=== PATIENT | male | born 1960 | race Caucasian/White ===

== ENCOUNTER 2021-12-01 10:02 | Outpatient (CLI) | payer OTHER, SELFPAY ==
[2021-12-01 10:31] LABS: Hemoglobin A1C 5.1 % (<5.7)
[2021-12-01 10:40] LABS: Alanine Aminotransferase 25 U/L (6-50); Albumin Level 4.5 g/dL (3.5-5.1); Alkaline Phosphatase 60 U/L (38-126); Anion Gap 9 mmol/L (8-16); Aspartate Amino Transferase 30 U/L (17-59); Bilirubin,Total 0.5 mg/dL (0.2-1.3); Blood Urea Nitrogen 18 mg/dL (9-20); Carbon Dioxide 30 mmol/L (22-30); Chloride 101 mmol/L (98-107); Estimated Glomerular Filt Rate > 60; Glucose 57 mg/dL (65-110); Potassium 3.7 mmol/L (3.4-5.0); Sodium 140 mmol/L (137-145)
== END 2021-12-01 10:03 | disposition home or self-care (01) ==
PROVIDERS: PCP Physician Assistant; Visit Provider Physician Assistant
DX: E11.9 Type 2 diabetes mellitus without complications (principal)
CPT/HCPCS: 36415; 80053; 83036

== ENCOUNTER 2022-06-11 11:29 | Outpatient (CLI) | payer OTHER, SELFPAY ==
[2022-06-11 11:50] LABS: Basophils Percent Auto 0.5 % (0.2-1.2); Eosinophils Absolute Auto 0.2 K/mm3 (0-0.3); Eosinophils Percent Auto 2.6 % (0-4.4); Hematocrit 43.2 % (42.0-52.0); Hemoglobin 14.7 g/dL (14.0-18.0); Immature Granulocyte Absolute 0.02 K/mm3 (0.00-0.031); Immature Granulocyte Percent A 0.3 % (0-0.5); Lymphocytes Absolute Auto 1.31 K/mm3 (0.9-3.2); Lymphocytes Percent Auto 21.4 % (18.3-44.2); Mean Corpuscular Hemoglobin 31.1 pg (26-34); Mean Corpuscular Volume 91.5 fl (80-100); Mean Platelet Volume 9.1 fl (7.4-10.4); Monocytes Absolute Auto 0.5 K/mm3 (0.1-0.6); Monocytes Percent Auto 7.5 % (2.6-8.5); Neutrophils Absolute Auto 4.2 K/mm3 (1.3-6.7); Neutrophils Percent Auto 67.7 % (45.5-73.1); Platelet Count Result 288 k/mm3 (150-375); Red Blood Count 4.72 M/mm3 (4.6-6.20); Red Cell Distribution Width 12.6 % (11.5-14.5); White Blood Count 6.1 K/mm3 (4.5-10.0)
[2022-06-11 12:25] LABS: Creatinine Urine 50.5 mg/dL
[2022-06-11 12:29] LABS: MALB Creatinine Ratio 64.4 mg/g (0-30); Microalbumin Urine Random 32.5 mg/L (0-16.7)
[2022-06-11 12:32] LABS: Hemoglobin A1C 6.1 % (<5.7)
[2022-06-11 12:50] LABS: Alanine Aminotransferase 32 U/L (6-50); Albumin Level 4.4 g/dL (3.5-5.1); Alkaline Phosphatase 77 U/L (38-126); Anion Gap 7 mmol/L (8-16); Aspartate Amino Transferase 33 U/L (17-59); Bilirubin,Total 0.7 mg/dL (0.2-1.3); Blood Urea Nitrogen 17 mg/dL (9-20); Calcium 9.1 mg/dL (8.4-10.2); Carbon Dioxide 31 mmol/L (22-30); Chloride 101 mmol/L (98-107); Cholesterol 197 mg/dL (0-200); Estimated Glomerular Filt Rate > 60; Glucose 150 mg/dL (65-110); HDL Direct 35 mg/dL; Potassium 3.9 mmol/L (3.4-5.0); Sodium 139 mmol/L (137-145); Triglycerides 99 mg/dL (<150)
[2022-06-11 13:00] LABS: LDL Cholesterol Direct 132 mg/dL
[2022-06-11 13:20] LABS: Prostate Specific Antigen 1.7 ng/mL (< OR = 4.0)
== END 2022-06-11 11:30 | disposition home or self-care (01) ==
PROVIDERS: PCP Physician Assistant; Visit Provider Physician Assistant
DX: Z00.00 Encounter for general adult medical examination without abnormal findings (principal); E11.9 Type 2 diabetes mellitus without complications; Z12.5 Encounter for screening for malignant neoplasm of prostate
CPT/HCPCS: 36415; 80053; 80061; 82043; 82607; 82746; 83036; 84153; 84443; 85025; G0103

== ENCOUNTER 2022-12-07 12:00 | Outpatient (CLI) | payer OTHER, SELFPAY ==
[2022-12-07 13:40] LABS: Alanine Aminotransferase 41 U/L (6-50); Albumin Level 4.2 g/dL (3.5-5.1); Alkaline Phosphatase 75 U/L (38-126); Anion Gap 10 mmol/L (8-16); Aspartate Amino Transferase 45 U/L (17-59); Bilirubin,Total 0.7 mg/dL (0.2-1.3); Blood Urea Nitrogen 14 mg/dL (9-20); Calcium 8.9 mg/dL (8.4-10.2); Carbon Dioxide 28 mmol/L (22-30); Chloride 98 mmol/L (98-107); Estimated Glomerular Filt Rate > 60; Glucose 127 mg/dL (65-110); Magnesium 1.8 mg/dL (1.6-2.3); Potassium 3.8 mmol/L (3.4-5.0); Sodium 136 mmol/L (137-145)
[2022-12-07 13:43] LABS: Hemoglobin A1C 6.3 % (<5.7)
== END 2022-12-07 12:01 | disposition home or self-care (01) ==
PROVIDERS: PCP Physician Assistant; Visit Provider Physician Assistant
DX: I10 Essential (primary) hypertension (principal); E11.9 Type 2 diabetes mellitus without complications
CPT/HCPCS: 36415; 80053; 83036; 83735

== ENCOUNTER 2023-02-08 00:40 | Day surgery (SDC) | payer OTHER, SELFPAY ==
[2023-01-31 09:59] VITALS: BMI 25.4
[2023-02-08 07:43] VITALS: BP 192/69; PULSE 61; RESP 18; TEMP 36.4; O2SAT 100
[2023-02-08] MEDS: LACTATED RINGERS 1,000 ML 150 ML IV CONT (07:50)
[2023-02-08 08:17] LABS: Glucose Point of Care 121 mg/dl (65-105)
--- NOTE | 2023-02-08 08:20 | P.PNAN_ITS ---
Anes - Initial Pre Proc Eval Procedure: Operation Date: 02/08/23 08:45 Proposed Procedures p Colonoscopy - Marcel Valentine MD Date/Time: 02/08/23 08:20 Surgeon: Marcel Valentine MD Pre Op Diagnosis: Family history of colon cancer Patient Data Age: 62 Gender: M Height: 1.83 m Weight: 85.9 kg Last Vital Signs Temp 97.5 F L 02/08/23 07:43 Pulse 61 02/08/23 07:43 Resp 18 02/08/23 07:43 BP 192/69 H 02/08/23 07:43 Pulse Ox 100 02/08/23 07:43 O2 Del Method Room Air 02/08/23 07:43 Allergies Allergy/AdvReac Type Severity Reaction Status Date / Time No Known Allergies Allergy Verified 02/08/23 07:42 Home Medications Medication Instructions Recorded Confirmed Type hydralazine 50 mg tablet 50 mg PO TID #90 tabs 11/19/22 01/31/23 Rx metoprolol tartrate 25 mg tablet See Rx Instructions .Route 11/26/22 01/31/23 Rx .COMPLEX #270 tabs losartan 100 mg tablet 100 mg PO DAILY #90 tabs 12/01/22 01/31/23 Rx metformin 1,000 mg tablet 1,000 mg PO BID #180 tabs 12/07/22 01/31/23 Rx hydrochlorothiazide 50 mg tablet 50 mg PO DAILY #90 tabs 01/26/23 01/31/23 Rx Laboratory Tests 02/08/23 07:51 POC Capillary Glucose 121 H mg/dl (65-105) Patient hx anesthesia problems: none Family hx anesthesia problems: none Results Review: All pre-operative results and documents have been reviewed as part of the pre- operative evaluation. [facility] Past Medical History Medical History (Updated 12/09/22 @ 13:47 by Emir Wolff PA-C) Diabetes Hypertension Family History Family History Mother Diabetes mellitus Hypertension Cerebrovascular accident Sibling Diabetes mellitus Grandparent Diabetes mellitus Heart disease Hypertension Social History Social History Smoking status: Never smoker Second hand tobacco smoke exposure: No Alcohol intake: never Substance use: unknown Current Housing: Decline to Answer Concerned About Future Housing: Decline to Answer Difficulty Paying Gas/Electric Bills: Decline to Answer Difficulty Paying for Meds: Decline to Answer Currently Unemployed: Decline to Answer Education: Decline to Answer Difficulty w/ Childcare or Family Care: Decline to Answer Living arrangements: with family Spiritual care concerns: No Anes - Eval Final PreProcedure Day of Procedure 02/08/23 08:20 Patient weight: normal Heart: regular rate and rhythm Lungs: clear to auscultation Airway: Mallampati scale class II Neurological: alert and oriented Last oral intake: >/= 8 hours ASA classification: II Emergent: no Anesthetic plan: proceed Anesthesia type and monitoring: general GIVS and standard monitoring Results Review: All pre-operative results and documents have been reviewed as part of the pre- operative evaluation. Informed Consent: The patient's anesthetic plan and its attendant risks and benefits were discussed with the patient/family/POA. Questions were solicited and answers provided to the satisfaction of the patient/family/POA.
--- NOTE | 2023-02-08 08:28 | PM.HPGS ---
History of Present Illness History of Present Illness Consent: Risks, benefits, and alternatives have been discussed and questions answered. Patient agrees to proceed with procedure. Chief complaint: Family history of colon cancer Narrative: Vinny Acuña is a 62 year old male here for first screening colonoscopy Review of Systems Constitutional: Constitutional: Denies headache(s) and Denies weakness Eyes: Eyes: Denies blurry vision ENT: Reports Normal hearing present, Denies headache(s) and Denies neck pain Cardiovascular: Cardiovascular: Denies chest pain and Denies dyspnea Respiratory: Respiratory: Denies dyspnea Gastrointestinal: Gastrointestinal: Reports no additional gastrointestinal complaints Genitourinary: Genitourinary: Denies dysuria Musculoskeletal: Musculoskeletal: Denies neck pain Integumentary/Breasts: Skin/Breast: Denies dry skin Neurologic: Reports Normal hearing present, Denies headache(s) and Denies weakness Psychiatric: Psychiatric: Denies anxiety Endocrine: Endocrine: Denies change in body appearance Hematologic/Lymphatic: Hematologic/Lymphatic: Denies easy bleeding Allergic/Immunologic: Allergic/Immunologic: Denies urticaria PMFSH Past Medical History Medical History (Updated 02/08/23 @ 08:29 by Marcel Valentine MD) Colon cancer screening Diabetes Hypertension Family History Family History Mother Diabetes mellitus Hypertension Cerebrovascular accident Sibling Diabetes mellitus Grandparent Diabetes mellitus Heart disease Hypertension Social History Social History Smoking status: Never smoker Second hand tobacco smoke exposure: No Alcohol intake: never Substance use: unknown Current Housing: Decline to Answer Concerned About Future Housing: Decline to Answer Difficulty Paying Gas/Electric Bills: Decline to Answer Difficulty Paying for Meds: Decline to Answer Currently Unemployed: Decline to Answer Education: Decline to Answer Difficulty w/ Childcare or Family Care: Decline to Answer Living arrangements: with family Spiritual care concerns: No Meds Home Medications and Allergies Home Medications Medication Instructions Recorded Confirmed Type hydralazine 50 mg tablet 50 mg PO TID #90 tabs 11/19/22 01/31/23 Rx metoprolol tartrate 25 mg tablet See Rx Instructions .Route 11/26/22 01/31/23 Rx .COMPLEX #270 tabs losartan 100 mg tablet 100 mg PO DAILY #90 tabs 12/01/22 01/31/23 Rx metformin 1,000 mg tablet 1,000 mg PO BID #180 tabs 12/07/22 01/31/23 Rx hydrochlorothiazide 50 mg tablet 50 mg PO DAILY #90 tabs 01/26/23 01/31/23 Rx Allergies Allergy/AdvReac Type Severity Reaction Status Date / Time No Known Allergies Allergy Verified 02/08/23 07:42 Vital Signs Vital Signs - 24 hr 02/08/23 07:43 Temperature 97.5 F L Pulse Rate 61 Respiratory Rate 18 Blood Pressure 192/69 H Pulse Oximetry 100 Oxygen Delivery Room Air Exam Const: General: comfortable and no acute distress HENMT: Face/Nose/Sinus: Normal nares present Eyes: General: appearance normal, both eyes and all related structures Neck: Neck: no JVD Resp: Auscultation: clear to auscultation bilaterally Cardio: Rate: regular rate Rhythm: regular rhythm GI: Inspection: non-distended GI Palp: Yes Soft to palpation Skin: General skin exam: normal color Neuro: General: gait normal Speech: normal speech Extrem: General: normal to inspection Psych: Mental Status: mental status grossly normal Assessment and Plan Assessment and plan (1) Colon cancer screening: Code(s): Z12.11 - Encounter for screening for malignant neoplasm of colon Status: Acute Assessment and Plan: colonoscopy
[2023-02-08 08:53] VITALS: BP 134/66; PULSE 60; RESP 16; O2SAT 100
[2023-02-08 09:03] VITALS: BP 139/69; PULSE 55; RESP 16; O2SAT 100
[2023-02-08 09:13] VITALS: BP 165/79; PULSE 54; RESP 20; O2SAT 100
== END 2023-02-08 09:27 | disposition home or self-care (01) ==
PROVIDERS: PCP Physician Assistant; Visit Provider Internal Medicine Gastroenterology
PROC: 0DJD8ZZ Inspection of Lower Intestinal Tract, Via Natural or Artificial Opening Endoscopic (ICD-10-PCS; CPT 45378; principal; 2023-02-08 08:45)
DX: Z12.11 Encounter for screening for malignant neoplasm of colon (principal); D12.8 Benign neoplasm of rectum; E11.9 Type 2 diabetes mellitus without complications; I10 Essential (primary) hypertension; Z79.84 Long term (current) use of oral hypoglycemic drugs; Z86.73 Personal history of transient ischemic attack (TIA), and cerebral infarction without residual deficits; Z80.0 Family history of malignant neoplasm of digestive organs
CPT/HCPCS: 45385; 82948; 88305; J2704; J7120

== ENCOUNTER 2023-06-14 11:26 | Outpatient (CLI) | payer OTHER, SELFPAY ==
[2023-06-14 12:06] LABS: Basophils Percent Auto 0.5 % (0.2-1.2); Eosinophils Absolute Auto 0.2 K/mm3 (0-0.3); Eosinophils Percent Auto 3.2 % (0-4.4); Hematocrit 45.6 % (42.0-52.0); Hemoglobin 14.8 g/dL (14.0-18.0); Immature Granulocyte Absolute 0.02 K/mm3 (0.00-0.031); Immature Granulocyte Percent A 0.3 % (0-0.5); Lymphocytes Absolute Auto 1.24 K/mm3 (0.9-3.2); Lymphocytes Percent Auto 20.7 % (18.3-44.2); Mean Corpuscular HGB Conc 32.5 g/dl (32-36); Mean Corpuscular Hemoglobin 29.8 pg (26-34); Mean Corpuscular Volume 91.9 fl (80-100); Mean Platelet Volume 9.4 fl (7.4-10.4); Monocytes Absolute Auto 0.5 K/mm3 (0.1-0.6); Neutrophils Percent Auto 67.3 % (45.5-73.1); Platelet Count Result 290 k/mm3 (150-375); Red Blood Count 4.96 M/mm3 (4.6-6.20); Red Cell Distribution Width 12.6 % (11.5-14.5)
[2023-06-14 12:19] LABS: Alanine Aminotransferase 24 U/L (6-50); Albumin Level 4.4 g/dL (3.5-5.1); Alkaline Phosphatase 72 U/L (38-126); Anion Gap 8 mmol/L (8-16); Aspartate Amino Transferase 31 U/L (17-59); Bilirubin,Total 0.8 mg/dL (0.2-1.3); Blood Urea Nitrogen 14 mg/dL (9-20); Calcium 9.4 mg/dL (8.4-10.2); Carbon Dioxide 27 mmol/L (22-30); Chloride 103 mmol/L (98-107); Cholesterol 162 mg/dL (0-200); Estimated Glomerular Filt Rate > 60; Glucose 133 mg/dL (65-110); HDL Direct 42 mg/dL; Potassium 3.8 mmol/L (3.4-5.0); Sodium 138 mmol/L (137-145); Triglycerides 57 mg/dL (<150)
[2023-06-14 12:27] LABS: Hemoglobin A1C 6.4 % (<5.7)
[2023-06-14 12:31] LABS: LDL Cholesterol Direct 115 mg/dL
[2023-06-14 12:45] LABS: Creatinine Urine 46.9 mg/dL
[2023-06-14 12:49] LABS: MALB Creatinine Ratio 70.6 mg/g (0-30); Microalbumin Urine Random 33.1 mg/L (0-16.7)
[2023-06-14 12:52] LABS: Prostate Specific Antigen 2.3 ng/mL (< OR = 4.0)
[2023-06-14 13:27] LABS: Folic Acid 8.1 ng/mL (2.76->20)
== END 2023-06-14 11:27 | disposition home or self-care (01) ==
LOC: ANHLAB 11:28
PROVIDERS: PCP Physician Assistant; Visit Provider Physician Assistant
DX: Z00.00 Encounter for general adult medical examination without abnormal findings (principal); E11.9 Type 2 diabetes mellitus without complications; Z12.5 Encounter for screening for malignant neoplasm of prostate
CPT/HCPCS: 36415; 80053; 80061; 82043; 82607; 82746; 83036; 84153; 84443; 85025; G0103

== ENCOUNTER 2023-12-27 13:49 | Outpatient (CLI) | payer OTHER, SELFPAY ==
[2023-12-27 14:41] LABS: Alanine Aminotransferase 38 U/L (6-50); Albumin Level 4.4 g/dL (3.5-5.1); Alkaline Phosphatase 71 U/L (38-126); Anion Gap 11 mmol/L (4-12); Aspartate Amino Transferase 36 U/L (17-59); Bilirubin,Total 0.9 mg/dL (0.2-1.3); Blood Urea Nitrogen 15 mg/dL (9-20); Calcium 9.3 mg/dL (8.4-10.2); Carbon Dioxide 26 mmol/L (22-30); Chloride 100 mmol/L (98-107); Cholesterol 183 mg/dL (0-200); Estimated Glomerular Filt Rate > 60; Glucose 123 mg/dL (65-110); HDL Direct 38 mg/dL; Potassium 3.9 mmol/L (3.4-5.0); Sodium 137 mmol/L (137-145); Triglycerides 101 mg/dL (<150)
[2023-12-27 14:52] LABS: LDL Cholesterol Direct 129 mg/dL
[2023-12-27 15:04] LABS: Hemoglobin A1C 6.7 % (<5.7)
== END 2023-12-27 13:50 | disposition home or self-care (01) ==
LOC: ANHLAB 13:51
PROVIDERS: PCP Internal Medicine; Visit Provider Internal Medicine
DX: E78.5 Hyperlipidemia, unspecified (principal); I10 Essential (primary) hypertension; E11.9 Type 2 diabetes mellitus without complications
CPT/HCPCS: 36415; 80053; 80061; 83036

== ENCOUNTER 2024-06-15 11:48 | Outpatient (CLI) | payer OTHER, SELFPAY ==
[2024-06-15 12:17] LABS: Basophils Percent Auto 0.6 % (0.2-1.2); Eosinophils Absolute Auto 0.2 K/mm3 (0-0.3); Eosinophils Percent Auto 2.6 % (0-4.4); Hematocrit 38.4 % (42.0-52.0); Hemoglobin 12.9 g/dL (14.0-18.0); Immature Granulocyte Absolute 0.02 K/mm3 (0.00-0.031); Immature Granulocyte Percent A 0.3 % (0-0.5); Lymphocytes Percent Auto 20.2 % (18.3-44.2); Mean Corpuscular HGB Conc 33.6 g/dl (32-36); Mean Corpuscular Hemoglobin 30.7 pg (26-34); Mean Corpuscular Volume 91.4 fl (80-100); Mean Platelet Volume 9.3 fl (7.4-10.4); Monocytes Absolute Auto 0.7 K/mm3 (0.1-0.6); Monocytes Percent Auto 10.1 % (2.6-8.5); Neutrophils Absolute Auto 4.3 K/mm3 (1.3-6.7); Neutrophils Percent Auto 66.2 % (45.5-73.1); Platelet Count Result 290 k/mm3 (150-375); Red Cell Distribution Width 12.6 % (11.5-14.5); White Blood Count 6.4 K/mm3 (4.5-10.0)
[2024-06-15 12:28] LABS: Alanine Aminotransferase 32 U/L (6-50); Albumin Level 4.2 g/dL (3.5-5.1); Alkaline Phosphatase 64 U/L (38-126); Anion Gap 8 mmol/L (4-12); Aspartate Amino Transferase 28 U/L (17-59); Bilirubin,Total 0.6 mg/dL (0.2-1.3); Blood Urea Nitrogen 15 mg/dL (9-20); Calcium 9.4 mg/dL (8.4-10.2); Carbon Dioxide 27 mmol/L (22-30); Chloride 101 mmol/L (98-107); Cholesterol 172 mg/dL (0-200); Estimated Glomerular Filt Rate > 60; Glucose 136 mg/dL (65-110); HDL Direct 38 mg/dL; Potassium 4.3 mmol/L (3.4-5.0); Sodium 136 mmol/L (137-145); Triglycerides 91 mg/dL (<150)
[2024-06-15 12:31] LABS: Hemoglobin A1C 6.6 % (<5.7)
[2024-06-15 12:33] LABS: Creatinine Urine 31.9 mg/dL
[2024-06-15 12:35] LABS: MALB Creatinine Ratio 71.5 mg/g (0-30); Microalbumin Urine Random 22.8 mg/L (0-16.7)
--- OUTSIDE RECORDS SUMMARY | 2024-06-15 12:36 | XMS_ITS | Continuity of Care Document ---
Author Organization [facility] Address [address] [place] [address] Phone Care Team Providers Care Senior Hydrogeologist Name Role Phone Cesar Keane MD Unavailable Unavailable Allergies, Adverse Reactions, Alerts Substance Reaction Status Criticality No Known Allergies Active No Inform ation Medications Medication Instructions Dosage Effective Dates (start - stop) Status Comments hydroCHLOROthiazide 50 MG Oral Tablet Take 1 tablet by mouth once daily - Active glipiZIDE 5 MG Oral Tablet TAKE 1 TABLET BY MOUTH ONCE DAILY BEFORE MEAL(S) 5 MG - Active Metoprolol Tartrate 25 MG Oral Tablet TAKE 2 TABLETS BY MOUTH ONCE DAILY IN THE MORNING AND 1 ONCE DAILY IN THE EVENING - Active metFORMIN HCl ER 500 MG Oral Tablet Extended Release 24 Hour TAKE 2 TABLETS BY MOUTH TWICE DAILY BEFORE BREAKFAST AND EVENING MEAL - Active hydralazine 50 mg tablet take 1 tablet b y oral route 3 times every day with food 50 MG - Active losartan 25 mg tablet take 2 tablet by oral route every day 50 MG - Active Lipitor 40 mg tablet take 1 Tablet by oral route every day at bedtime 40 MG - Active metformin ER 500 mg tablet,extended release 24hr take 2 tablets twice daily before breakfast and evening meal - Active Procedures Procedure Date Pt inelig neg scrn depres PREVENTATIVE-EST: 40-64 BODY MASS INDEX DOCD SYST BP >= 140 MM HG6 IT DIAST BP 80-89 MM HG CBC, INC PLATELETS AND DIFFERENTIAL COMPREHEN METABOLIC PANEL CMP 2 HEMOGLOBIN A1C HGA1C, GLYCO LIPID PANEL MICROALBUMIN, QN (URINE) CREATININE, (U-R) ROUTINE VENIPUNCTURE COMPREHEN METABOLIC PANEL [facility] 1 ROUTINE VENIPUNCTURE BP OFFICE/OUTPATIENT VISIT EST 21 Pt inelig neg scrn depres OFFICE [id number] BODY MASS INDEX DOCD SYST BP >= 140 MM HG6 IT DIAST BP 80-89 MM HG CBC, INC PLATELETS AND DIFFERENTIAL COMPREHEN METABOLIC PANEL [facility] HEMOGLOBIN A1C HGA1C, GLYCO LIPID PANEL MICROALBUMIN, QN (URINE) CREATININE, (U-R) PSA, TOTAL ROUTINE VENIPUNCTURE Pt inelig neg scrn depres OFFICE [id number] BODY MASS INDEX DOCD SYST BP >= 140 MM HG6 IT DIAST BP < 80 MM HG BASIC METABOLIC PANEL(BMP) HEMOGLOBIN A1C HGA1C, GLYCO ROUTINE VENIPUNCTURE Pt inelig neg scrn depres PREVENTATIVE-EST: 40-64 BODY MASS INDEX DOCD SYST BP >= 140 MM HG6 IT DIAST BP < 80 MM HG CBC, INC PLATELETS AND DIFFERENTIAL COMPREHEN METABOLIC PANEL [facility] 0 HEMOGLOBIN A1C HGA1C, GLYCO LIPID PANEL MICROALBUMIN, QN (URINE) CREATININE, (U-R) PSA, TOTAL ROUTINE VENIPUNCTURE Pt inelig neg scrn depres OFFICE [id number] BODY MASS INDEX DOCD SYST BP >= 140 MM HG6 IT DIAST BP 80-89 MM HG BASIC METABOLIC PANEL(BMP) HEMOGLOBIN A1C HGA1C, GLYCO ROUTINE VENIPUNCTURE Pt inelig neg scrn depres PREVENTATIVE-EST: 40-64 BODY MASS INDEX DOCD SYST BP >= 140 MM HG6 IT DIAST BP 80-89 MM HG CBC, INC PLATELETS AND DIFFERENTIAL COMPREHEN METABOLIC PANEL CMP 9 HEMOGLOBIN A1C HGA1C, GLYCO LIPID PANEL MICROALBUMIN, QN (URINE) CREATININE, (U-R) PSA, TOTAL ROUTINE VENIPUNCTURE Advance Directives Directive Yes / No Effective Date File Name Life Support Not Answered N/A N/A Intubation Not Answered N/A N/A Antibiotics Not Answered N/A N/A IV Fluid Support Not Answered N/A N/A Tube Feed Not Answered N/A N/A Other Directive N/A N/A WARNING:The information contained in this section is historical and is provided for information only and does not constitute a legal document or any assurance that the information is still accurate. Please verify the information with the david of the legal document before using it for clinical purposes. Encounters Encounter Description Practice Location Reason(s) For Visit Diagnoses Date Provider Providers Copied on Encounter [facility] [address], [place], [place], [address] , [place] tel: [phone] [place] No Information 3 English Guerrero. [address] [place], [address], [place]. tel:[phone] [facility], [address], [place], [place], [address] , tel: [phone] [place] No Information 2 Cesar. [address] [place], [address], [place]. tel:[phone] [facility], [address], [place], [place], [address] , tel: [phone] [place] No Information 2 English Guerrero. [address] [place], [address], [place]. tel:[phone] [facility], [address], [place], [place], [address] , tel: [phone] [place] No Information 2 English Guerrero. [address] [place], [address], [place]. tel:[phone] PREVENTATIVE -EST: 40-64 [facility], [address], [place], [place], [address] , tel: [phone] [place] px (chief complaint) Encounter for general adult medical examination without abnormal findingsAnxiety as acute reaction to gross stressBody mass index [BMI] 25.0-25.9, adultDiabetes mellitus with microalbuminuriaEss ential hypertensionVenous insufficiencyScreen ing PSA (prostate specific antigen) 2 Cesar. [address] [place], [address], [place]. tel:[phone] Referring Provider: [place], [address] . tel:[phone] [facility], [address], [place], [place], [address] , tel: [phone] [place] No Information 2 Cesar. [address] [place], [place], [address], [place]. tel:[phone] BP OFFICE/OUTPA TIENT VISIT EST [facility], [address], [place], [place], [address] , tel: [phone] [place] Essential hypertension 1 John. Villavicencio [place], [address], . tel:[phone] Referring Provider: [place], [address] . tel:[phone] [facility] [address], [place], [place], [address] , tel: [phone] [place] chronic condiitons (chief complaint) Essential (primary) hypertensionMixed hyperlipidemiaDiabe jimi mellitus with microalbuminuriaPro teinuria, unspecifiedBody mass index (BMI) 26.0-26.9, adult 1 English GuerreroRenetta Villavicencio [place], [address], [place]. tel:[phone] Referring Provider: [place], [address] . tel:[phone] [facility], [address], [place], [place], [address] , tel: [phone] [place] Essential hypertensionMixed hyperlipidemiaDiabe tic retinopathy associated with type 2 diabetes mellitus, macular edema presence unspecified, unspecified laterality, unspecified retinopathy severityScreening PSA (prostate specific antigen) 1 English GuerreroRenetta Villavicencio [place], [place], [address], [place]. tel:[phone] Referring Provider: [place], [address] . tel:[phone] [facility], [address], [place], [place], [address] , tel: [phone] [place] No Information 1 English GuerreroRenetta Villavicencio [place], [address], . tel:[phone] OFFICE KNIZZ-XNC-VZ [facility], [address], [place], [place], [address] , tel: [phone] [place] chronic conditions (chief complaint) Essential hypertensionType 2 or unspecified type diabetes mellitus with complicationAnxiety as acute reaction to gross stress 0 1 English Guerrero. May[address] [place], [place], [address], . tel:[phone] Referring Provider: [place], [address] . tel:[phone] PREVENTATIVE -EST: 40-64 [facility], [address], [place], [place], [address] , tel: [phone] [place] PX (chief complaint) Encounter for general adult medical examination without abnormal findingsType 2 or unspecified type diabetes mellitus with complicationEssenti al hypertensionAnxiety as acute reaction to gross stressScreening PSA (prostate specific antigen) 0 English John. Villavicencio [place], [address], . tel:[phone] Referring Provider: [place], [address] . tel:[phone] OFFICE ZOIUP-WBL-KS [facility], [address], [place], [place], [address] , tel: [phone] [place] Chronic conditions (chief complaint) Body mass index (BMI) 25.0-25.9, adultAnxiety as acute reaction to gross stressType 2 or unspecified type diabetes mellitus with complicationEssenti al hypertension 0 English John. Villavicencio [place], [address], . tel:[phone] Referring Provider: [place], [address] . tel:[phone] PREVENTATIVE -EST: 40-64 [facility], [address], [place], [place], [address] , tel: [phone] [place] PX (chief complaint) Encounter for general adult medical examination without abnormal findingsType 2 or unspecified type diabetes mellitus with complicationAnxiety as acute reaction to gross stressBody mass index (BMI) 26.0-26.9, adultOld myocardial infarct 9 English John. Villavicencio [place], [address], . tel:[phone] Referring Provider: [place], [address] . tel:[phone] [facility], [address], [place], [place], [address] , tel: [phone] [place] px (chief complaint) Essential hypertensionMixed hyperlipidemiaType 2 or unspecified type diabetes mellitus with complicationScreeni ng PSA (prostate specific antigen) 9 Cesar. [address] [place], [address], [place]. tel:[phone] Referring Provider: [place], [address] . tel:[phone] [facility], [address], [place], [place], [address] , tel: [phone] [facility] Essential (primary) hypertension English Guerrero. [address] [place], [place], [address], . tel:[phone] Referring Provider: [place], [address] . tel:[phone] [facility], [address], [place], [place], [address] , tel: [phone] [place] Essential (primary) hypertension 9 English Veronica [place] [place], [address], . tel:[phone] Referring Provider: [place], [address] . tel:[phone] [facility], [address], [place], [place], [address] , tel: [phone] [facility] 6 month (chief complaint) Type 2 diabetes mellitus with unspecified complicationsEssent ial hypertensionMixed hyperlipidemiaAnxie ty as acute reaction to gross stressAcute stress reactionST elevation (STEMI) myocardial infarction involving other coronary artery of anterior wall 9 English Guerrero. [address] [place], [address], [place]. tel:[phone] Referring Provider: [place], [address] . tel:[phone] [facility], [address], [place], [place], [address] , [place] tel: [phone] [place] Encounter for general adult medical examination without abnormal findingsEssential hypertensionSuprave ntricular tachycardiaType 2 diabetes mellitus with unspecified complicationsTear of right rotator cuff, unspecified tear extentOther veterans services specialist (current) drug therapy 8 English Guerrero. [address], [address], [place]. tel:[phone] Referring Provider: [place], [address] . tel:[phone] [facility], [address], [place], [place], [address] , [place] tel: [phone] [place] Tear of right rotator cuff, unspecified tear extent Jun-0 8 English Guerrero. [address] [place], [address], [place]. tel:[phone] [facility], [address], [place], [place], [address] , [place] tel: [phone] [place] Acute pain of right shoulder 8 English Guerrero. [address], [address], [place]. tel:[phone] Referring Provider: [place], [address] . tel:[phone] [facility], [address], [place], [place], [address] , [place] tel: [phone] [place] Type 2 diabetes mellitus with unspecified complicationsMixed hyperlipidemiaEssen tial hypertensionSuprave ntricular tachycardia 7 English Guerrero. [address] [place], [address], [place]. tel:[phone] Referring Provider: [place], [address] . tel:[phone] [facility], [address], [place], [place], [address] , [place] tel: [phone] [place] Diabetic retinopathy associated with type 2 diabetes mellitus, macular edema presence unspecified, unspecified laterality, unspecified retinopathy severityEssential hypertensionMixed hyperlipidemiaType 2 diabetes mellitus with unspecified complicationsEncoun ter for general adult medical examination without abnormal findings 7 English Guerrero. [address] [place], [place], [address], [place]. tel:[phone] Referring Provider: Cesar Keane, [address] [place], [address] . tel:[phone] [facility], [address], [place], [place], [address] , tel: [phone] [place] Routine health maintenanceDiabetic retinopathy associated with type 2 diabetes mellitus, macular edema presence unspecified, unspecified laterality, unspecified retinopathy severityEssential hypertensionMixed hyperlipidemia August- 7 Nakul Mcelroy. [address] [place] [address], [address], . tel:[phone] [facility], [address], [place], [place], [address] , [place] tel: [phone] [place] Diabetic retinopathy associated with type 2 diabetes mellitus, macular edema presence unspecified, unspecified retinopathy severityMixed hyperlipidemiaEssen tial hypertension Oct- 6 Nakul Mcelroy. [facility], [address], [place]. tel:[phone] Referring Provider: Lilibeth Mota, [facility], [address]. tel:[phone] [facility], [address], [place], [place], [address] , tel: [phone] [place] Type 2 diab w moderate nonprlf diab rtnop w/o macular edemaEssential (primary) hypertensionType 2 diabetes mellitus with unspecified complicationsOther hyperlipidemiaSupra ventricular tachycardiaEncounte r for general adult medical examination without abnormal findings 6 Damien Hoskins. [address] [place], [place], [address], [place]. tel:[phone] Referring Provider: Gato Bullard, [address] [place], [address] . tel:[phone] [facility], [address], [place], [place], [address] , tel: [phone] [place] Type 2 diabetes mellitus with unspecified complicationsType 2 diabetes mellitus with moderate nonproliferative diabetic retinopathy without macular edemaEssential (primary) hypertensionOther hyperlipidemia Oct-2 5 Damien Hoskins. [address] [place], [place], [address], [place]. tel:[phone] Referring Provider: Gato Bullard, [address] [place], [address] . tel:[phone] [facility], [address], [place], [place], [address] , tel: [phone] [place] Benign essential hypertensionMixed hyperlipidemiaDiabe jimi mellitus with unspecified complication, type II or unspecified type, not stated as uncontrolledBackgro und diabetic retinopathyParoxysm al supraventricular tachycardiaRoutine Medical Exam 5 Bhakti Jensen. [address] [place], [address], [place]. tel:[phone] Referring Provider: Gato Bullard, [address] [place], [address] . tel:[phone] [facility], [address], [place], [place], [address] , [place] tel: [phone] [place] Benign essential hypertensionMixed hyperlipidemiaParox ysmal supraventricular tachycardiaBackgrou nd diabetic retinopathyDiabetes mellitus with unspecified complication, type II or unspecified type, not stated as uncontrolled Jan- 4 Bhakti Jensen. [address] [place], [address], [place]. tel:[phone] Referring Provider: Gato Bullard, [address] [place], [address] . tel:[phone] [facility], [address], [place], [place], [address] , tel: [phone] [place] Mixed hyperlipidemiaEncou nter for long-term (current) use of other medications Jan- 4 Damien Hoskins. [address] [place], [place], [address], . tel:[phone] Referring Provider: Gato Bullard, [address] [place], [address] . tel:[phone] [facility], [address], [place], [place], [address] , [place] tel: [phone] [place] Diabetes with ophthalmic manifestations, type II or unspecified type, not stated as uncontrolledModerat e nonproliferative diabetic retinopathyHyperten serina, BenignPSVTMixed HyperlipidemiaRouti ne general medical examination at [facility] Jul- 4 Bhakti Jensen. [address] [place], [address], [place]. tel:[phone] Referring Provider: Gato Bullard, [address] [place], [address] . tel:[phone] [facility], [address], [place], [place], [address] , tel: [phone] [place] Moderate nonproliferative diabetic retinopathyType II diabetes mellitus with ophthalmic manifestDiabetes mellitus without mention of complicaBENIGN HYPERTENSIONPSVT (paroxysmal supraventricular tachycardia) Oct- 0 3 Damien Hoskins. [address] [place], [place], [address], [place]. tel:[phone] Referring Provider: Gato Bullard, [address] [place], [address] . tel:[phone] [facility], [address], [place], [place], [address] , [place] tel: [phone] [place] Mixed hyperlipidemiaDiabe jimi with ophthalmic manifestations, type II or unspecified type, not stated as uncontrolled 3 Bhakti Jensen. [address] [place], [address], [place]. tel:[phone] Referring Provider: Gato Bullard, [address] [place], [address] . tel:[phone] [facility] [employer], [address], [place], [place], [address] , tel: [phone] [place] Benign essential hypertensionDiabete s mellitus without mention of complication, type II or unspecified type, not stated as uncontrolledLong-te rm (current) use of other medicationsScreenin g for lipoid disorders Jul-0 3 Damien Hoskins. [address] [place], [place], [address], [place]. tel:[phone] Referring Provider: Gato Bullard, [address] [place], [address] . [phone] [facility], [address], [place], [place], [address] , tel: [phone] [place] Diabetes mellitus without mention of complicaBENIGN HYPERTENSION Mar- 0201 2 Bhakti Jensen. [address] [place], [address], [place]. tel:[phone] Referring Provider: Gato Bullard, [address] [place], [address] . tel:[phone] [facility], [address], [place], [place], [address] , [place] tel: [phone] [place] Diabetes with ophthalmic manifestations, type II oBENIGN HYPERTENSIONBackgro und diabetic retinopathy 1201 2 Ksdereck Jensen. [address] [place], [address], [place]. tel:[phone] Referring Provider: Gato Bullard, [address] [place], [address] . tel:[phone] [facility], [address], [place], [place], [address] , tel: [phone] [place] Diabetes mellitus without mention of complication,Diabet es mellitus without mention of complication,Diabet es with ophthalmic manifestations, type II oBENIGN HYPERTENSION Mar-0 1-201 2 Damien Hoskins. [address] [place], [place], [address], [place]. tel:[phone] Referring Provider: Gato Bullard, [address] [place], [address] . tel:[phone] [facility], [address], [place], [place], [address] , [place] tel: [phone] [place] Diabetes with ophthalmic manifestations, type II or unspecified type, not stated as uncontrolled Dec-0 2-201 1 Damien Hoskins. [address] [place], [place], [address], [place]. tel:[phone] [employer], [address], [place], [place], [address] , [place] tel: [phone] [place] IMPAIRED FASTING GLUCOSEAccidents caused by hypodermic needle Dec-0 1-201 1 Damien Hoskins. [address] [place], [place], [address], [place]. tel:[phone] Referring Provider: Gato Bullard, [address] [place], [address] . tel:[phone] [employer], [address], [place], [place], [address] , [place] tel: [phone] [place] Oct-1 1-201 1 Damien Hoskins. [address] [place], [place], [address], [place]. tel:[phone] Referring Provider: Gato Bullard, [address] [place], [address] . tel:[phone] [facility] [employer], [address], [place], [place], [address] , [place] tel: [phone] [place] Oct-0 3-201 1 Ad Madison. [address] [place], [place], [address]. tel:[phone] [facility] [employer], [address], [place], [place], [address] , [place] tel: [phone] [place] Sep-2 9-201 1 Charlenezakia Jensen. [address] [place], [address], . tel:[phone] Referring Provider: Gato Bullard, [address] [place], [address] . tel:[phone] [facility] [employer], [address], [place], [place], [address] , tel: [phone] [place] IMPAIRED FASTING GLUCOSEHypopotassem ia Sep-2 1 Damien Hoskins. [address] [place], [place], [address], . tel:[phone] Referring Provider: Gato Bullard, [address] [place], [address] . tel:[phone] [facility], [address], [place], [place], [address] , tel: [phone] [facility] No Information Sep-2 1 Ksdereck Baueria. [address] [place], [place], [facility], [place]. tel:[phone] [employer], [address], [place], [place], [address] , tel: [phone] [facility] ACC-HYPODERMIC NEEDLEROUTINE MEDICAL EXAM Sep-0 1 Damien Hoskins. [address] [place], [place], [address], . tel:[phone] Family History Family Member Type Diagnosis Age At Onset Mother Problem (finding) premature dimas nary heart disease (Cause Of ) Brother Problem (finding) Father Problem (finding) coronary arter iosclerosis (Cause Of ) Sister Problem (finding) diabetes melli tus in first degree relative 50 Mother Problem (finding) Father Problem (finding) Brother Problem (finding) malignant neop lasm of lung (Cause Of ) Immunizations Vaccine Date Status Comments Fluzone Quad, preservative free, split virus, 0.5mL dosage administered Note: work- date alpa roximate ; Source: Source Unspecified Fluzone Quad, preservative free, split virus, 0.5mL dosage administered Source: Source Unspe cified Td (7 yrs and older) administered Source: New Immunization Record Fluzone Quad , preservative free, split virus, 0.5mL dosage administered Note: work ; Source: Parents Recall Payers Payer name Insurance type Covered constitution party ID Tammy jose(s) [employer] B[employer] CI [id number] Social History Type Description Quantity Date Captured Comments Alcohol Use Details Unknown Caffeine Use Details Unknown Tobacco Use Status No Information Smoking Status No Information Sex Male Chief Complaint And Reason For Visit No Information Reason For Referral Reason For Referral No Information Plan Of Treatment Date Type Action Status Goal Dietary management education , guidance, and counseling completed Goal Dietary management education , guidance, and counseling completed Goal Dietary management education , guidance, and counseling completed Goal Dietary management education , guidance, and counseling completed Referral Ordered: EKG (ELECTROCARDIOGRAM) Bilateral chest ordered Referral Ordered: Single photon emission computed tomography (SPECT) for myocardial perfusion with multiple studies Appointment date/timeframe: 05/26/2018 ordered History Of Present Illness Encounter Date Complaint History Of Prese nt Illness px chronic conditio nshtn---reduced amlodioine bc of leg swelling, low salt diet, doesnt check at alldm-- has been goodanxiety-- stable on med, found a book with breathing exercisesdiet-- low sugar, low saltexercise-- tries to take walksscreening-- needs stool testimmunizationsmood----pissy mood chronic condiitons dm with micro albumurinuria--controlled on medshtn---too highhld-- not taking statin chronic conditions htn-- too hig hdm---on metformin, no side effectsanxiety-- doing ok, doesnt want any meds PX chronic conditio nsdm-- on med, needs annual eye exam, no numbness in feethtn--doesnt checkanxiety-- stablediet----not the bestexercise-- not muchscreening-- will check psa, refuses colonoscopyimmunizations-- gets flu shot at hospital where worksmood---ok, no depressionsleep--- alright he guesses Chronic conditions htn-- high he re initally, no symptomsdm-- ok, on meds, needs annual eye exam, no numbness in feetanxiety-- on lexapro, still having some problems PX chronic conditio nsdm-- no numbness in feet, has not been watcing diet, utd with eye examhtn---no symptomsanxiety--lexapro didnt work, wants to stop, doesnt want to increase lexaptroold infarct-- no chest paindiet- -not really watchingexercise-- works at [employer],, pass esscreening- doesnt want colon cancer screeningimmunizations-- flu shot at work, needs shingrixmood-- ok overallsleep is ok overall px 6 month htn-- bp too hig hdm-- on metforminveryu anxious about living siutationhas increased tics bc of itdoesnt exercise much Functional Status Date Functional Assessmen t No Information Instructions Date Instruction Additional Infor karli recommend covid vacc inesrecommend flu vaccineneeds FIT testhealthy diet and exercisefollow up in 6 months Related to Encounter for general adult medical examination without abnormal findings continue medscontinu e breathing exercises Related to Anxiety as acute reaction to gross stress wear compression stockings Relat ed to Venous insufficiency will start hydralazine Related t o Essential hypertension continue meds Related to Diabe jimi mellitus with microalbuminuria Dietary management e ducation, guidance, and counseling Related to Body mass index (BMI) 25.0-25.9, adult Medication management continue medsget annual eye exam Related to Diabetes mellitus with microalbuminuria continue losartan Related to Pro teinuria, unspecified continue medsstart a mldoipinelow salt diet Related to Essential (primary) hypertension restart atorvastatin Related to Mixed hyperlipidemia Dietary management e ducation, guidance, and counseling Related to Body mass index (BMI) 26.0-26.9, adult Medication management too highwill add aml odipinelow salt diet Related to Essential hypertension continue metformincheck hba1c Re lated to Type 2 or unspecified type diabetes mellitus with complication continue to stay active Related to Anxiety as acute reaction to gross stress Medication management annual flu shotrecom mend colon cancer screeninghealthy diet and exercisefollow up in 6 months Related to Encounter for general adult medical examination without abnormal findings continue medslow salt diet Relat ed to Essential hypertension continue metforminch west [id number] annual eye exam Related to Type 2 or unspecified type diabetes mellitus with complication increase exercise Related to Anx iety as acute reaction to gross stress Medication management low salt dietmonitor bp at homecontinue medscheck bmp Related to Essential hypertension check [id number] medslow carb diet Related to Type 2 or unspecified type diabetes mellitus with complication continue lexapro Related to Anxi ety as acute reaction to gross stress Giving encouragement to exercise Related to Body mass index (BMI) 25.0-25.9, adult Medication management Dietary management e ducation, guidance, and counseling Related to Body mass index (BMI) 25.0-25.9, adult annual flu shotneeds shingrixwould consider colon cancer screeningpsa normalfollow up in 6 months Related to Encounter for general adult medical examination without abnormal findings can go off of lexapr otake 1/2 tab a day for 3 months and then quit Related to Anxiety as acute reaction to gross stress need to concentrate on diet morecontinuie metforminannual eye exam Related to Type 2 or unspecified type diabetes mellitus with complication will get stress test 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 Medication management Dietary management e ducation, guidance, and counseling Related to Body mass index (BMI) 26.0-26.9, adult see above Related to Acute stress reaction will start lexapro Related to An xiety as acute reaction to gross stress on metformincheck hba1c today Re lated to Type 2 diabetes mellitus with unspecified complications switch to [id number] daily Related to Mixed hyperlipidemia bp way too high toda yekg showed old anteroseptal infarctwill get stress testincrease hctz to 50mg Related to Essential hypertension Medication management Assessments Type Assessment Date No Information Patient Care Teams Name Effective Dates (start - stop) Status Members No Information
[2024-06-15 12:44] LABS: LDL Cholesterol Direct 109 mg/dL
[2024-06-15 12:55] LABS: Prostate Specific Antigen 2.3 ng/mL (< OR = 4.0)
== END 2024-06-15 11:49 | disposition home or self-care (01) ==
LOC: ANHLAB 11:50
PROVIDERS: PCP Internal Medicine; Visit Provider Internal Medicine
DX: Z00.00 Encounter for general adult medical examination without abnormal findings (principal); Z12.5 Encounter for screening for malignant neoplasm of prostate; I10 Essential (primary) hypertension; E11.9 Type 2 diabetes mellitus without complications; E78.5 Hyperlipidemia, unspecified
CPT/HCPCS: 36415; 80053; 80061; 82043; 83036; 84153; 85025; G0103

== ENCOUNTER 2024-08-02 14:11 | Outpatient (CLI) | payer OTHER, SELFPAY ==
[2024-08-02 14:23] LABS: Basophils Percent Auto 0.5 % (0.2-1.2); Eosinophils Absolute Auto 0.3 K/mm3 (0-0.3); Eosinophils Percent Auto 4.5 % (0-4.4); Hematocrit 39.4 % (42.0-52.0); Hemoglobin 13.3 g/dL (14.0-18.0); Immature Granulocyte Absolute 0.02 K/mm3 (0.00-0.031); Immature Granulocyte Percent A 0.3 % (0-0.5); Lymphocytes Absolute Auto 1.64 K/mm3 (0.9-3.2); Lymphocytes Percent Auto 22.4 % (18.3-44.2); Mean Corpuscular HGB Conc 33.8 g/dl (32-36); Mean Corpuscular Hemoglobin 30.6 pg (26-34); Mean Corpuscular Volume 90.6 fl (80-100); Mean Platelet Volume 9.1 fl (7.4-10.4); Monocytes Absolute Auto 0.8 K/mm3 (0.1-0.6); Monocytes Percent Auto 10.7 % (2.6-8.5); Neutrophils Absolute Auto 4.5 K/mm3 (1.3-6.7); Neutrophils Percent Auto 61.6 % (45.5-73.1); Platelet Count Result 285 k/mm3 (150-375); Red Blood Count 4.35 M/mm3 (4.6-6.20); Red Cell Distribution Width 12.7 % (11.5-14.5); White Blood Count 7.3 K/mm3 (4.5-10.0)
== END 2024-08-02 14:12 | disposition home or self-care (01) ==
LOC: ANHLAB 14:12
PROVIDERS: PCP Internal Medicine; Visit Provider Internal Medicine
DX: D64.9 Anemia, unspecified (principal)
CPT/HCPCS: 36415; 85025

== ENCOUNTER 2024-12-27 14:04 | Outpatient (CLI) | payer OTHER, SELFPAY ==
[2024-12-27 15:01] LABS: Hemoglobin A1C 6.9 % (<5.7)
[2024-12-27 15:07] LABS: Alanine Aminotransferase 45 U/L (6-50); Albumin Level 4.2 g/dL (3.5-5.1); Alkaline Phosphatase 73 U/L (38-126); Anion Gap 5 mmol/L (4-12); Aspartate Amino Transferase 42 U/L (17-59); Bilirubin,Total 0.8 mg/dL (0.2-1.3); Blood Urea Nitrogen 13 mg/dL (9-20); Calcium 9.1 mg/dL (8.4-10.2); Carbon Dioxide 27 mmol/L (22-30); Chloride 102 mmol/L (98-107); Cholesterol 200 mg/dL (0-200); Estimated Glomerular Filt Rate > 60; Glucose 129 mg/dL (65-110); HDL Direct 33 mg/dL; Potassium 3.7 mmol/L (3.4-5.0); Sodium 134 mmol/L (137-145); Total Protein 7.0 g/dL (6.3-8.2); Triglycerides 176 mg/dL (<150)
[2024-12-27 16:05] LABS: MALB Creatinine Ratio 60.8 mg/g (0-30)
== END 2024-12-27 14:05 | disposition home or self-care (01) ==
LOC: ANHLAB 14:05
PROVIDERS: PCP Nurse Practitioner; Visit Provider Nurse Practitioner
DX: E78.5 Hyperlipidemia, unspecified (principal); E11.9 Type 2 diabetes mellitus without complications
CPT/HCPCS: 36415; 80053; 80061; 82043; 83036